=== PATIENT | male | born 1990 | race Caucasian/White ===

== ENCOUNTER → 2021-12-11 | Outpatient (CLI) | payer SELFPAY ==
[2021-12-11 12:09] LABS: SEMEN VOLUME 2.5 ML (1.5-5.0)
== END ==
LOC: LAB 10:49
PROVIDERS: ATTEND Obstetrics & Gynecology Gynecology
DX: N46.9 Male infertility, unspecified (principal)
CPT/HCPCS: 89320

== ENCOUNTER → 2022-06-25 | Outpatient (CLI) | payer SELFPAY | LOC: LAB 12:07 | PROVIDERS: ATTEND Urology | DX: R86.8 Other abnormal findings in specimens from male genital organs (principal) | CPT/HCPCS: 89320 ==